=== PATIENT | male | born 1985 | race Caucasian/White ===

== ENCOUNTER 2019-10-28 05:34 | Emergency (ER) ==
[~2019-10-28] VITALS: Ht 182.9 cm; Wt 81.8 kg
[2019-10-28 05:38] VITALS: BP 147/85
== END 2019-10-28 05:57 | disposition home or self-care (01) ==
LOC: ER 05:35
DX: H65.91 Unspecified nonsuppurative otitis media, right ear (principal); F17.200 Nicotine dependence, unspecified, uncomplicated
CPT/HCPCS: 99281

== ENCOUNTER 2019-12-28 20:40 | Emergency (ER) | payer MEDICAID, OTHER ==
[~2019-12-28] VITALS: Ht 182.9 cm; Wt 80.0 kg
[2019-12-28 20:46] VITALS: BP 115/68
[2019-12-28] MEDS ORDERED: CIPR2.5D18 EACHEYE (21:14)
== END 2019-12-28 21:28 | disposition home or self-care (01) ==
LOC: ER 20:40
DX: B99.9 Unspecified infectious disease (principal); H10.89 Other conjunctivitis; F17.200 Nicotine dependence, unspecified, uncomplicated; Z79.2 Long term (current) use of antibiotics
CPT/HCPCS: 99283

== ENCOUNTER 2020-09-19 01:44 | Emergency (ER) | payer MEDICAID ==
[~2020-09-19] VITALS: Ht 182.9 cm; Wt 87.0 kg
[2020-09-19 01:49] VITALS: BP 125/84
[2020-09-19] MEDS ORDERED: cephalexin 250mg capsule PO ONE (02:40)
[2020-09-19] MEDS ORDERED: CEPH500C5 PO (02:41)
[2020-09-19] MEDS ORDERED: ACYC-202 PO (02:41)
== END 2020-09-19 03:28 | disposition home or self-care (01) ==
LOC: ER 01:45
DX: A60.01 Herpesviral infection of penis (principal); N48.22 Cellulitis of corpus cavernosum and penis; Z79.899 Other long term (current) drug therapy
CPT/HCPCS: 99283

== ENCOUNTER 2020-11-02 07:18 | Emergency (ER) | payer MEDICAID ==
[~2020-11-02] VITALS: Ht 182.9 cm; Wt 83.4 kg
[~2020-11-02 07:18] MED LIST: CEPH500C5 PO
[2020-11-02 07:21] VITALS: BP 118/73
[2020-11-02] MEDS ORDERED: ACYC400T PO (07:40)
[2020-11-02] MEDS ORDERED: valacyclovir 500mg tablet PO SCH (07:40)
[2020-11-02] MEDS ORDERED: valacyclovir 500mg tablet PO ONE (07:40)
== END 2020-11-02 07:53 | disposition home or self-care (01) ==
LOC: ER 07:19
DX: A60.01 Herpesviral infection of penis (principal); Z79.2 Long term (current) use of antibiotics; Z79.899 Other long term (current) drug therapy
CPT/HCPCS: 99283

== ENCOUNTER 2021-04-28 12:21 | Emergency (ER) | payer MEDICAID ==
[~2021-04-28] VITALS: Ht 182.9 cm; Wt 86.4 kg
[~2021-04-28 12:21] MED LIST changes: +CEPH-585 PO; -CEPH500C5 PO
[2021-04-28 12:28] VITALS: BP 125/75
[2021-04-28] MEDS ORDERED: MUPI22OI30 TOP (13:45)
[2021-04-28] MEDS ORDERED: SULF1TAB49 PO (13:45)
== END 2021-04-28 13:58 | disposition home or self-care (01) ==
LOC: ER 12:22
DX: L08.9 Local infection of the skin and subcutaneous tissue, unspecified (principal); M79.632 Pain in left forearm; Z79.2 Long term (current) use of antibiotics; Z79.899 Other long term (current) drug therapy
CPT/HCPCS: 99283

== ENCOUNTER 2023-08-04 03:50 | Emergency (ER) | payer MEDICAID ==
[~2023-08-04] VITALS: Ht 182.9 cm; Wt 86.2 kg
[~2023-08-04 03:50] MED LIST changes: -CEPH-585 PO; +MUPI22OI30 TOP
[2023-08-04 04:34] VITALS: BP 139/101; PULSE 93; RESP 18; TEMP 97.6; O2SAT 98
[2023-08-04] MEDS ORDERED: AMOX500C2 PO (04:49)
== END 2023-08-04 06:06 | disposition home or self-care (01) ==
LOC: ER 03:51
DX: K08.89 Other specified disorders of teeth and supporting structures (principal); Z79.899 Other long term (current) drug therapy
CPT/HCPCS: 99283

== ENCOUNTER 2024-11-06 23:27 | Emergency (ER) | payer MEDICAID ==
[~2024-11-06] VITALS: Ht 182.9 cm; Wt 96.5 kg
[2024-11-06 23:33] VITALS: BP 164/87; PULSE 108; RESP 16; TEMP 98; O2SAT 100
== END 2024-11-07 02:23 | disposition left against medical advice (07) ==
LOC: ER 23:28
DX: Z20.2 Contact with and (suspected) exposure to infections with a predominantly sexual mode of transmission (principal); F17.200 Nicotine dependence, unspecified, uncomplicated; Z79.899 Other long term (current) drug therapy
CPT/HCPCS: 99281

== ENCOUNTER 2025-03-10 16:38 | Emergency (ER) | payer MEDICAID ==
[~2025-03-10] VITALS: Ht 182.9 cm; Wt 93.2 kg
--- NOTE | 2025-03-10 18:07 | Physician Documentation ---
HPI ~ General Chief Complaint: Tooth Problem Stated Complaint: TOOTH PAIN Time Seen by MD: 16:44 Primary Medical Doctor: none History of Present Illness HPI Comment Patient is seen today with complaints of pain of his right upper molar states it is loose and very painful and he feels some swelling in his right upper face now and around that tooth that started just a couple of days ago. Patient states he had a miss work today because of the pain. He has no complaints of fevers and denies any chest pain or shortness of breath or abdominal pain or nausea, vomiting, diarrhea. Patient has no other concern or complaint at this time. Patient states that he actually is not allergic to penicillin he just does not like to get the penicillin shot for syphilis and prefers the tablets. Medication Reconciliation Allergies: Uncoded Allergies: PENICILLIN (Allergy, Mild, childhood, 11/06/24) Scheduled Mupirocin* (Bactroban*), 1 APPLIC TOP Q8H Past Medical History Past Medical History: Herpes Simplex Past Surgical History: no surgical history Alcohol Use: None Drug Use: none Lives In: Home Review of Systems Constitutional: Denies: chills, fever, weakness Eyes: Denies: pain, blurred vision ENT: Denies: ear pain, nose pain, throat pain, mouth pain Respiratory: Denies: cough, shortness of breath Cardiovascular: Denies: chest pain, palpitations Gastrointestinal: Denies: abdominal pain, nausea, vomiting Genitourinary: Denies: burning, dysuria Male Genitalia: Denies: penile discharge, testicular pain Neurological: Denies: headache, dizziness Musculoskeletal: Denies: pain, swelling Integumentary: Denies: rash, lesions Allergic/Immunologic: Denies: hives, itching Hematologic/Lymphatic: Denies: no symptoms reported Psychiatric: Denies: depression, anxiety Physical Exam Vital Signs: Temperature: 98.0, Heart Rate: 98, Respiratory Rate: 16, BP: 147/90, Pulse Oximetry: 100, Weight: 93.180 Oxygen Flow Rate: 0 Physical Exam General: Awake and Alert, no acute distress. HEENT: Patient on exam does have very poor dentition with multiple caries and missing teeth and broken teeth. Patient's right upper molar is highly mobile and loose I do not appreciate any periapical abscess currently. Conjunctiva pink, Sclera clear, Mucus Membranes moist. Neck: Supple without masses and tenderness. Resp: Unlabored. Lungs clear to auscultation bilaterally. Heart: Regular Rate and rhythm, normal S1 and S2 without murmur, rub or gallop. Extremities: No cyanosis,clubbing or edema. Skin: Warm and Dry. Progress Results/Orders Results/Orders Vital Signs 03/10/25 16:41 Temp 98.0 Pulse 98 Resp 16 B/P (MAP) 147/90 Pulse Ox 100 O2 Flow Rate 0 Medical Decision Making Findings Patient is seen today with complaints of pain of his right upper molar states it is loose and very painful and he feels some swelling in his right upper face now and around that tooth that started just a couple of days ago. Patient states he had a miss work today because of the pain. He has no complaints of fevers and denies any chest pain or shortness of breath or abdominal pain or nausea, vomiting, diarrhea. Patient has no other concern or complaint at this time. Patient states that he actually is not allergic to penicillin he just does not like to get the penicillin shot for syphilis and prefers the tablets. Patient was given amoxicillin 1000 mg in the ED tonight. Patient states he has safely taken amoxicillin in the past and admits to actually not having any penicillin allergy or allergy to penicillin. Patient was sent prescription of amoxicillin 875 mg, one tab twice a day for 10 days sent to patient pharmacy. Patient will return to ED with any worsening, concerning or changing symptoms. Patient will follow up with dentist for further eval and treatment and likely dental extraction. Departure Disposition: HOME / SELF CARE / HOMELESS Impression: Primary Impression: Dental abscess Additional Impression: Toothache Condition: Improved Discharge Instructions: Dental Abscess Additional Instructions: Patient was given amoxicillin 1000 mg in the ED tonight. Patient states he has safely taken amoxicillin in the past and admits to actually not having any penicillin allergy or allergy to penicillin. Patient was sent prescription of amoxicillin 875 mg, one tab twice a day for 10 days sent to patient pharmacy. Patient will return to ED with any worsening, concerning or changing symptoms. Patient will follow up with dentist for further eval and treatment and likely dental extraction. Referrals: NO PRIMARY CARE PROVIDER (PCP) Prescriptions Amoxicillin Trihydrate (Amoxicillin) 875 Mg Tablet 1 TAB PO Q12H for 10 Days, #20 TAB Prov: CECELIA LAI 03/10/25 Signature Scribe Signature: No scribe Attestation: No scribe MINGCECELIA R PAC March 10, 2025 18:07
[2025-03-10] MEDS ORDERED: AMOX875T10 PO (18:10)
[2025-03-10] MEDS: amoxicillin 250mg capsule PO STA (18:19)
[2025-03-10 18:23] VITALS: BP 145/86; PULSE 92; RESP 18; TEMP 98.6; O2SAT 99
== END 2025-03-10 18:24 | disposition home or self-care (01) ==
LOC: ER 16:38
DX: K04.7 Periapical abscess without sinus (principal); Z79.899 Other long term (current) drug therapy
CPT/HCPCS: 99283